=== PATIENT | male | born 2000 | race Caucasian/White ===

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

== ENCOUNTER 2022-04-10 16:20 | Emergency (ER) | payer OTHER ==
[~2022-04-10] VITALS: Ht 162.6 cm; Wt 116.6 kg
[2022-04-10 16:32] VITALS: BP 124/71
[2022-04-10 16:42] VITALS: BP 163/91
--- NOTE | 2022-04-10 17:01 | NUR ---
BERNARDO MEDELLIN AT BEDSIDE FOR EVALAUTION
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
--- NOTE | 2022-04-10 17:52 | NUR ---
ULTRASOUND AT BEDSIDE
[2022-04-10] MEDS ORDERED: DOXY-565 PO (19:19)
[2022-04-10] MEDS ORDERED: IBUP-2213 PO (19:20)
[2022-04-10] MEDS ORDERED: cefTRIAXone 500 MG in LIDOCAINE MPF 1% 1 ML IM ONE (19:25)
--- NOTE | 2022-04-10 19:26 | NUR ---
REPORT GIVEN TO NINA ARAGON. ALL QUESTIONS ANSWERED. TRANSFER OF CARE AT THIS TIME
[2022-04-10] MEDS ORDERED: cefTRIAXone 500 MG VIAL ONE (19:32)
[2022-04-10] MEDS ORDERED: LIDOCAINE MPF 1% 5 ML ONE (19:33)
--- NOTE | 2022-04-10 19:45 | NUR ---
Patient discharged with v/s stable. Written and verbal after care instructions given and explained. Patient verbalized understanding. Ambulatory with steady gait. All questions addressed prior to discharge. Advised to follow up with PMD.
== END 2022-04-10 19:45 | disposition home or self-care (01) ==
LOC: MED 16:20
DX: N50.811 Right testicular pain (principal); N50.3 Cyst of epididymis; Z11.3 Encounter for screening for infections with a predominantly sexual mode of transmission; Z79.899 Other long term (current) drug therapy
CPT/HCPCS: 76870; 81002; 87491; 96372; 99284; J0696; J2001; Q0092